=== PATIENT | male | born 1955 | race Caucasian/White ===

== ENCOUNTER → 2021-01-02 | Outpatient (CLI) | payer OTHER ==
--- NOTE | 2021-01-02 09:32 | RAD ---
EXAM: ULTRASOUND ABDOMEN COMPLETE CLINICAL HISTORY: Weight loss. Abnormal liver enzyme laboratory values. Pain. COMPARISON: None available. TECHNIQUE: Ultrasound of the upper abdomen was performed. FINDINGS: The liver is normal in size. No focal hepatic lesion is seen. There is cholelithiasis. The gallbladde r wall is upper normal in thickness. The common bile duct is mildly dilated for patient age, measurin g 0.6 mm in caliber. The kidneys are normal in size. There is a complicated right renal cyst with int ernal septation measuring 4.9 cm in maximum dimension. There is no hydronephrosis. The pancreas, sple en, aorta and inferior vena cava are unremarkable. IMPRESSION: 1. Cholelithiasis. The gallbladder wall is upper normal in thickness. Cholecystitis is not completely excluded. 2. Mild common bile duct dilatation. MRCP may be useful if there is concern for an occult obstructing etiology. 3. 4.9 cm complicated right renal cyst with internal septation. Follow-up with a renal sonogram or a renal protocol CT or MRI can be performed to confirm benignity. Electronically signed by: Jada Rincon MD (01/02/2021 9:30 AM) [id number]
== END ==
LOC: US 08:51 → EDSTATUS 09:00
PROVIDERS: ATTEND Family Medicine
DX: K80.20 Calculus of gallbladder without cholecystitis without obstruction (principal); N28.1 Cyst of kidney, acquired; R74.8 Abnormal levels of other serum enzymes; D72.10 Eosinophilia, unspecified; R63.0 Anorexia; R11.0 Nausea; R63.4 Abnormal weight loss
CPT/HCPCS: 76700